=== PATIENT | female | born 1960 | race Caucasian/White ===

== ENCOUNTER → 2017-07-28 09:15 | Outpatient (CLI) | payer BC, SELFPAY | PROVIDERS: Visit Provider Obstetrics & Gynecology | DX: Z12.11 Encounter for screening for malignant neoplasm of colon (principal) | CPT/HCPCS: 82274 ==

== ENCOUNTER → 2018-04-21 10:28 | Outpatient (CLI) | payer BC, SELFPAY ==
[2017-07-27 08:13] VITALS: BMI 27.8
[2018-04-21 13:07] LABS: Cholesterol 261 mg/dL (200); Creatinine, Serum 0.56 mg/dL (0.55-1.02); EST Glomerular Filtration Rate 118 mL/min (>60); Est Glom Filt Rate - Afr Amer 143 mL/min (>60); High Density Lipoprotein 47 mg/dL; Triglycerides 181 mg/dL; Very Low Density Lipoprotein 36 mg/dL (5-40)
--- OUTSIDE RECORDS SUMMARY | 2018-06-25 19:13 | XMS RPT_ITS ---
:1960 Author Organization OHIP Care Team Providers Name Role Phone SALIMA HUNT Referring Unavailable Salima Hunt Attending Unavailable Salima Hunt Primary Care Unavailable Marycruz Bhardwaj Attending Unavailable Marycruz Bhardwaj Attending Unavailable Salima Hunt Referring Unavailable Salima Hunt Primary Care Unavailable PROBLEMS PROBLEMS DATE TYPE CONDITION / CODE ATTENDING STATUS SOURCE 04/21/2018 Unknown Z00.00 - Encounter Salima Hunt Active [place] for general adult [facility] without abnormal Repository findings / Z00.00(ICD-10) 07/28/2017 Unknown Z12.11 - Encounter [place] Active [place] for screening for [facility] malignant neoplasm [facility] of colon / Repository Z12.11(ICD-10) 07/27/2017 Unknown Z01.411 - Encounter Susie Bhardwaj [place] for gynecological [facility] (general) (routine) Repository with abnormal findings / Z01.411(ICD-10) 07/27/2017 Unknown N95.1 - Menopausal [place] Active [place] and female [facility] / N95.1(ICD-10) Repository 07/25/2017 Active Unknown / NA Active [facility] UNK(Unknown) Main [place] Repository PROCEDURES PROCEDURES No Procedure Records FoundRESULTS RESULTS LIPID PROFILE Collected: 04/21/2018 Status: F Source: [place] 10:30 AM [facility] [place] REPOSITORY TYPE CODE TESTS RESULT OUT OF RANGE REFERENCE UNITS LAB L501.4900 200 mg/dL High CHOL 261 Result Comment: <200 mg/dL Desirable 200-240 mg/dL Borderline >240 mg/dL High Risk LAB L501.5000 mg/dL Normal TRIG 181 Result Comment: The drugs N-Acetylcysteine and Metamizole may falsely depress this assay. Serum Triglycerides Reference Interval Normal <150 mg/dL Borderline high 150 - 199 mg/dL High 200 - 499 mg/dL Very High > or = 500 mg/dL LAB L501.6400 mg/dL Normal HDL 47 Result Comment: The drugs N-Acetylcysteine and Metamizole may falsely depress this assay. Reference Range HDL <40 mg/dL Low HDL Cholesterol HDL >or= 60 mg/dL High HDL Cholesterol LAB L501.6500 0-130 mg/dL High LDL 178 LAB L501.6600 5-40 mg/dL Normal VLDL 36 Performed By: #### L500.4100 #### [facility] [address] [place], [place], [id number] SERUM CREATININE AND Collected: 04/21/2018 Status: F Source: [place] GFR 10:30 AM [facility] REPOSITORY TYPE CODE TESTS RESULT OUT OF RANGE REFERENCE UNITS LAB L501.1100 0.55-1.02 mg/dL Normal 0.56 CREAT,SERUM Result Comment: The validity of the calculated GFR AND GFRAA in patients over 70 years has not been determined. Clinical correlation is essential. LAB L501.1110 >60 mL/min Normal EST GFR 118 Result Comment: Non- GFR Calc LAB L501.1115 >60 mL/min Normal EST GFR - AA 143 Result Comment: GFR Calc Performed By: #### L501.1105 #### [facility] [address] [place], [place], [address] Observed: 07/28/2017 Status: F Source: [place] STOOL OCCULT BLOOD 9:16 AM [facility] IFOB REPOSITORY STOB iFOB Occult Blood Negative Performed By: #### M100.7900 #### [facility] [address] [place], [address] RN CARE MANAGER OFFICE VISIT Observed: 07/27/2017 Status: F Source: [place] REPORT 8:46 AM [facility] REPOSITORY [facility] [address] [place] [address] OFFICE VISIT Date of Service: 07/27/17 MR#: [id number] Acct: [id number] Name: NATHANIEL PARSONS Rep #: [id number] : 1960 Provider: Marycruz Bhardwaj MD Age/Sex: 57/F Location[place] [facility] Status: Signed Intake Vital Signs07/27/17 Height 5 ft 2 in 07/27/17 Weight: 152 lb 2 oz 07/27/17 Body Mass Index (BMI) 27.8 07/27/17 Blood Pressure 127/72 Intake Visit Reasons: est annual former ccf Chief Complaint: est annual Fitness Floor Attendant Required: No Is patient in pain?: No Allergies No Known Allergies Allergy (Unverified 07/27/17 08:15) Medications calcium carbonate 200 mg calcium (500 mg) chewable tablet 200 mg PO TID tab 07/27/17 [History Confirmed 07/27/17] glucosamine sulfate 500 mg tablet 500 mg PO BID 07/27/17 [History Confirmed 07/27/17] multivitamin,cc-swji-bhlxpkte tablet 1 tab PO QDAY 07/27/17 [History Confirmed 07/27/17] Is last menstrual period known: No Post menopausal: Yes Patient : No : No PFSH Surgical History History of dilation and curettage (Acute) History of tonsillectomy (Acute) Family History Mother Cancer cervical Breast cancer Sister Cancer lung Breast cancer Father Myocardial infarction Heart disease Social History Smoking Status: Never smoker alcohol intake: current details: social substance use type: does not use caffeine: Yes what type of physical activity do you participate in: yoga, walking frequency: 3-4 times per week seatbelt use: always do you feel safe at home: Yes additional social history: [employer] Patient works at [place] [employer] Pregancy History 4 Elective abortions Hx Para 3 Spontaneous abortions Past Pregnancies Del. DateName GA/Weeks Outcome Route Bth WeighInfant GeLabor LgtAnesthesiDel LocatProvider FOB t n h a n HPI est annual former ccf: Details: NATHANIEL PARSONS is a 57 year old who presents for annual exam. tony just got , other two dtrs in carpenter, working Last PAP: 2014 History of abnormal PAP: no abnormals Last mammogram: and normal History of abnormal mammogram: Colon cancer screening: ordered Other preventative health care screenings: per pcp salima hunt Female Reproductive History Questions: Sexually active: Yes, Dyspareunia: No, PCB: No Menopausal Symptoms: Yes night sweats, Yes sleep problems (staying asleep) ROS Const Constitutional: Reports as per HPI and night sweats; denies poor appetite, fatigue, increased appetite, weight gain or weight loss Cardio Card: Denies chest pain Resp Resp: Denies dyspnea or cough GI GI: Reports as per HPI; denies bloating, abdominal pain, constipation, vomiting or nausea : Reports as per HPI, urinary frequency and other; denies blood in urine, vaginal odor, vaginal itching, vaginal dryness, vaginal discharge, urinary urgency, urinary incontinence, pelvic pain, painful urination, difficulty urinating, prolapse symptoms or nipple discharge Skin Skin/Breast: Denies breast pain, breast skin changes, nipple discharge, breast lump or changing lesions Exam Const General: cooperative, healthy appearing, comfortable, no acute distress, well developed, well groomed [facility] Head: normal to inspection, normocephalic Ears: hearing grossly normal bilaterally, external ears normal Nose: external nose normal Face and sinus: normal facial exam Neck Neck: normal visual inspection, full ROM, no lymphadenopathy Thyroid: thyroid normal Chest Chest palpation AND inspection: normal inspection of the chest Breast inspection: normal inspection of the breasts, normal inspection of the axillae Breast palpation: normal palpation of the breasts, normal palpation of the axillae, no axillary lymphadenopathy Resp Effort AND Inspection: normal respiratory effort GI Inspection: normal to inspection, non-distended Palpation: no guarding, soft, no hepatosplenomegaly General: bladder normal to palpation External Female Exam: normal external appearance, normal appearance of the urethra, no lesions Urethra: normal appearance of the urethra, normal palpation Speculum Exam - Vagina: normal appearance of the vagina, normal vaginal discharge Speculum Exam - Cervix: normal appearance of the cervix, no cervical discharge, no lesions, nontender Bimanual Exam- Vagina AND Uterus: No cervical tenderness, normal bimanual exam, uterine size normal, bladder normal to palpation, uterine mobility normal, uterine consistency normal, uterus non-tender, no cervical motion tenderness Bimanual Exam- Adnexa, other: normal adnexae, no adnexal masses, adnexae non-tender Skin General: no rashes or lesions noted Neuro General: alert, moves all extremities, no focal motor deficits Extrem General: no pedal edema, normal to inspection Psych Appearance: grossly normal Mental Status: mental status grossly normal Affect: normal affect Speech and Movement: speech and movement normal Attitude: cooperative Assessment AND Plan Problems 1. Encounter for gynecological examination with abnormal finding Z01.411 2. Climacteric N95.1 Plan Cervical cancer screening: pap 2014 Breast cancer screening: mamm up to date other health maintenance examination reviewed and up to date. Encouraged maintenance of a healthy weight and active lifestyle and handout given. Calcium/vitamin D recommendations provided. Annual exam handout including recommendations for good health guidelines and basic screening information given. Problem list up to date, see problem list details for any additional plan information. Follow up in one year for annual health maintenance exam or sooner if needed. Coding Level of Care Code Off vis,est,prev 40-64yrs Diagnoses Encounter for gynecological examination with abnormal finding Z01.411 Gynecological examination findings: abnormal findings PRESENT Climacteric N95.1 07/27/17 0846 <Electronically signed by Marycruz Bhardwaj MD> Date Marycruz Bhardwaj MD Cosigner Signature: Date (if applicable) CC: CNCO Observed: 07/25/2017 Status: COMPLETED Source: [place] 4:44 PM [facility] REPOSITORY HNO ID: [id number] Author: Mammography Coordinator Service: (none) Author Type: Physician Type: Letter Filed: 07/26/2017 11:32 PM Note Text: July 25, 2017 PID: [id number] Nathaniel Parsons [address] [place] [address] Dear Ms. Parsons, We are pleased to inform you that the results of your recent breast imaging exam on 07/25/2017 are normal. Early detection of cancer is very important. We also understand recommendations regarding breast cancer screening are controversial. Please discuss with your primary care provider which strategy is best for you and whether a mammogram is right for you. Your imaging studies and report will be kept on file at [facility] as part of your permanent medical record and are available for your continuing care. Thank you for allowing us to help in meeting your health care needs. Sincerely, Dr. Wilder Interpreting Radiologist [facility] (Normal over 40) [facility] SCREENING Observed: 07/25/2017 Status: F Source: [place] 8:27 AM [facility] REPOSITORY * * *Final Report* * * DATE OF EXAM: Jul 25 2017 8:27AM [facility] 0581 - [facility] SCREENING / PROCEDURE REASON: SCREENING BRIJESH MAMM * * * * Physician Interpretation * * * * RESULT: #[id number] - [facility] SCREENING BILATERAL DIGITAL SCREENING MAMMOGRAM WITH CAD: 07/25/2017 HISTORY: Screening Brijesh Mamm /patient reports no breast symptoms /priors available for comparison. RESULT: TECHNIQUE: The study was acquired using full field digital technology and interpreted from soft copy. Current study was also evaluated with a Computer Aided Detection (CAD). Comparison is made to exams dated: 08/07/2015 mammogram, 02/06/2015 mammogram, 08/06/2014 mammogram - [facility], and 07/23/2014 mammogram - [facility]. There are scattered fibroglandular elements in both breasts. There is a biopsy clip in the left breast. No significant masses, calcifications, or other findings are seen in either breast. There has been no significant interval change. IMPRESSION: NEGATIVE There is no mammographic evidence of malignancy. A 1 year screening mammogram is recommended. Tegan Wilder M.D., lp/penrad:07/25/2017 16:44:43 Platform Operations Director: Piedad Baird RT(R)(M), [facility] letter sent: Normal over 40 Mammogram BI-RADS: 1 Negative Organ Pipe Maker Metal: [employer] Transcribe Date/Time: Jul 25 2017 8:01A Dictated by: TEGAN WILDER MD This examination was interpreted and the report reviewed and electronically signed by: TEGAN WILDER MD on Jul 25 2017 4:44PM EST [id number] Observed: 07/25/2017 Status: COMPLETED Source: [place] 8:01 AM [facility] REPOSITORY HNO ID: [id number] Author: Loree Vazquez Service: (none) Author Type: (none) Type: Progress Notes Filed: 07/25/2017 8:32 AM Note Text: Radiology Service Progress Note PATIENT NAME: Nathaniel Parsons DATE OF SERVICE: July 25, 2017 TIME: 8:01 AM PATIENT IDENTITY VERIFICATION COMPLETED USING TWO (2) METHODS: Patient confirmed name verbally and Date of . PATIENT GENDER DATA: Female. status: : No status: NO. PATIENT RELEVANT IMPLANT DATA REVIEWED: Not Applicable RADIOLOGY DEPARTMENT: [facility] brijesh scr mammogram PERIPHERAL IV DATA: Not applicable SIGNED BY: Loree Vazquez July 25, 2017 8:01 AM ALLERGIES ALLERGIES DATE TYPE / CODE NAME / CODE REACTION SEVERITY SOURCE 07/27/2017 Drug No Known Unknown [facility] Allergy/416 Allergies/S84639 Hospital 738071(SNOM 0388(RXNORM) Repository ED CT) Drug NO KNOWN [facility] Class/92095 ALLERGIES [facility] 1003(SNOMED Repository CT) ENCOUNTERS ENCOUNTERS ADMIT/DISCHARGE ACCOUNT ADMITTING ENCOUNTER LOCATION SOURCE NUMBER CLASS 04/21/2018 [id number] Ambulatory [facility] ing:MFPLAB Repository 07/28/2017 [id number] Ambulatory [facility] ing:LABSPEC Repository 07/27/2017/07/28/19 [id number] Ambulatory BMSBuilding:B [place] [address] [facility] Repository 07/25/2017/07/26/19 [id number] Ambulatory [address] Repository PAYERS PAYERS ENCOUNTER GUARANTOR PAYER SUBSCRIBER SOURCE 04/21/2018 NATHANIEL [id number] Primary NORMAN SOLOMON Insurance:OSVALDOEMPmic OLSONB: wallace Lowry Number: [id number] [address]Ces: [id number] Repository Date:3212-55-34AX [address] () [id number] [place] [address]DE: 04/21/2018 Secondary NOT GIVENUNK [place] Insurance:SELF PAY [facility] Number: Effective Repository Date:2018-04-21 07/28/2017 NATHANIEL [id number] Primary Christopher D [place] JUANITO Insurance:ANTHEMPolic FowlerDOB: [place] Number: [id number] [address]Cbk: [id number] Repository Date:3353-24-02WD [address] () [id number] [place] [id number]: 07/28/2017 Secondary NOT GIVENUNK [place] Insurance:SELF PAY [facility] Number: Effective Repository Date:2017-07-28 07/27/2017 NATHANIEL [id number] Primary Christopher D [place] JUANITO Insurance:ANTHEMPolic FowlerDOB: [facility] [place] Number: [id number] [address]Gms: [id number] Repository Date:3848-46-70BL [address] () [id number], [place] [address]ZK: 07/27/2017 Secondary NOT GIVENUNK [place] Insurance:SELF PAY [facility] Number: Effective Repository Date:2017-07-27
== END ==
PROVIDERS: Family Provider Family Medicine; PCP Family Medicine; Visit Provider Family Medicine
DX: Z00.00 Encounter for general adult medical examination without abnormal findings (principal)
CPT/HCPCS: 36415; 80061; 82565

== ENCOUNTER → 2018-08-07 | Outpatient (CLI) | payer BC, SELFPAY ==
[2018-08-07 15:47] VITALS: BMI 27.8
[2018-08-10 16:22] LABS: HPV APTIMA, High Risk Negative (Negative)
== END | disposition home or self-care (01) ==
LOC: LABSPEC 16:45
PROVIDERS: Family Provider Family Medicine; PCP Family Medicine; Referring Provider Obstetrics & Gynecology; Visit Provider Obstetrics & Gynecology
DX: Z12.4 Encounter for screening for malignant neoplasm of cervix (principal)
CPT/HCPCS: 87624; 88175; G0145

== ENCOUNTER → 2018-08-07 | Outpatient (CLI) | payer BC, SELFPAY ==
--- NOTE | 2018-08-07 14:48 | BI_ITS ---
MAMMOGRAPHY - BILATERAL SCREENING 3-D TOMOSYNTHESIS REASON FOR EXAM: Female, 58 years old. Bilateral Screening 3-D tomosynthesis PERTINENT HISTORY: Mother with breast cancer at age 75. Patient status post benign left breast biopsy in 2009.. TECHNIQUE: 2-D mammograms and 3-D Tomosynthesis of the breast (s) were performed. CAD was performed. COMPARISON: July 25, 2017. FINDINGS: The breast composition is almost entirely fat. Scattered benign calcifications are seen. No dense spiculated masses or suspicious microcalcifications are identified. No architectural distortion is identified. There is no skin thickening or retraction. There is a stable, 5.7 mm maximum dimension, reniform, well-circumscribed nodule within the deep upper right breast seen only convincingly on the MLO views. This finding demonstrates a lucent/fatty hilum and is therefore most compatible with benign appearing intramammary lymph node. There has been no significant change since the prior study. BI/SCREEN MAMM (CAD) W/FREDDY BILAT IMPRESSION: No mammographic signs of malignancy. Routine yearly mammograms recommended. ASSESSMENT CATEGORY: BIRADS Category 2: Benign. A letter regarding these results will be sent to the patient by the facility within 30 days. FOLLOW UP RECOMMENDATION: Yearly follow up mammogram recommended. (A) Approximately 10% of breast cancers are not detected by mammography. A normal mammogram should not delay biopsy of a clinically suspicious abnormality. Electronically Signed: Giuliano Lowe MD at 16:19 EDT , Service support ,
== END | disposition home or self-care (01) ==
LOC: OPBI 14:47
PROVIDERS: Family Provider Family Medicine; PCP Family Medicine; Referring Provider Obstetrics & Gynecology; Visit Provider Obstetrics & Gynecology
DX: Z12.31 Encounter for screening mammogram for malignant neoplasm of breast (principal)
CPT/HCPCS: 77063; 77067

== ENCOUNTER 2018-11-26 14:08 | Emergency (ER) | payer BC, SELFPAY ==
[2018-08-07 15:47] VITALS: BMI 27.8
[2018-11-26 14:09] VITALS: BP 156/84; PULSE 69; RESP 18; TEMP 36.8; O2SAT 97; BMI 25.0
--- NOTE | 2018-11-26 14:22 | ED.VIS.UPPEX ---
History of Present Illness Chief Complaint: Laceration Informant: Patient Occurred: Today - JPTA Mechanism/Context: Injury Context: Sudden Onset Timing: Continuous Quality of Pain: - - sore Location: left forearm Current Severity: Mild Maximum Severity: Mild Worsened by: palpation Relieved by: leaving alone Associated Symptoms: Negative for: Parasthesia, Weakness, Loss of Funtion Narrative: Patient was gardening, trying to step on a shovel and lost her balance while doing so, falling back against an exposed bolt on a gardening cart, causing a laceration on her left forearm. [id number]. Tetanus Immunization: >10 years Past Medical History - Allergies and Home Meds Allergies/Adverse Reactions: Allergies No Known Allergies Allergy (Verified 11/26/18 14:09) Primary Care Physician: Rayshawn Coulter MD [Primary Care Provider] - Past Medical History: None Lives: Spouse/ Significant Other Smoking Status: Never smoker Review of Systems Musculoskeletal: Reports: Extremity Pain. Denies: Swelling Skin: Reports: Wounds Neurological: Denies: Weakness, Parasthesia, Numbness Physical Exam Vital Signs/Narrative: Vital Signs Temp Pulse Resp BP Pulse Ox 11/26/18 14:09 98.3 F 69 18 156/84 H 97 General: Well nourished, Well developed, - - Well-appearing, NAD Head: Normocephalic, Atraumatic Extremeties: Laceration just distal to the medial epicondyles of the left elbow. No bony tenderness, full range of motion throughout the entire extremity. Neurovascularly intact distally. Skin: Normal color, No rash, Trauma - 5 cm full-thickness clean-appearing laceration to the proximal medial right forearm, with exposed subcutaneous fat. Neurological: Alert, Oriented x3, Cranial nerves II-XII grossly intact, Normal Strength, Normal Sensation, Normal Gait Psychological: Normal affect, Normal Mood Diagnostic/Tx/Re-eval - Medical Decision Making Wound explored, no foreign body. It was repaired see procedure note. Tolerated well, no complications. Tetanus was updated. Suture removal in 10 to 14 days. Procedures - Lacerations right forearm Length: 5 cm Depth: Sub Q Shape: Linear - curvilinear, w/ L-shape at one end Prep: Sterile Conditions, Chlorhexadine Laceration repair: Irrigated, Lidocaine with epi, Local, Skin sutures Irrigated (ml): 50 Number of Sutures/[place]: 4 Suture Information: Ethilon, Horizontal, Mattress, 4-0 ED Disposition - Plan for ED Patient: Disposition: Home or Assisted Living Diagnosis: Laceration of right forearm without complication, Immunization, tetanus-diphtheria Instructions: LACERATION, Extrem (Suture, Staple or Tape), Vaccines: Td and Tdap (Adult) Referrals: Rayshawn Coulter MD [Primary Care Provider] - 10-14 Days suture removal
[2018-11-26] MEDS: Diphth,Pertuss(Acell),Tet Vac 0.5 ML Vial IM (15:21)
== END 2018-11-26 15:53 | disposition home or self-care (01) ==
PROVIDERS: Emergency Provider Emergency Medicine; Family Provider Family Medicine; PCP Family Medicine
DX: S51.812A Laceration without foreign body of left forearm, initial encounter (principal); Z23 Encounter for immunization; W26.8XXA Contact with other sharp object(s), not elsewhere classified, initial encounter; Y93.H2 Activity, gardening and landscaping; Y92.007 Garden or yard of unspecified non-institutional (private) residence as the place of occurrence of the external cause; Y99.8 Other external cause status
CPT/HCPCS: 12002; 90471; 90715; 99284

== ENCOUNTER → 2019-06-08 | Outpatient (CLI) | payer BC, SELFPAY ==
[2019-06-08 11:03] LABS: Absolute Lymphocyte Count 1.63 X10^3/uL (0.83-4.51); Absolute Neutrophil Count 3.6 X10^3/uL (2.0-7.7); Basophil# 0.04 X10^3/uL; Basophil% 0.7 % (0-1); Eosinophil# 0.11 X10^3/uL; Eosinophils% 1.9 % (0-5); Hematocrit 37.2 % (37-47); Hemoglobin 11.4 g/dL (12.0-15.0); Lymphocyte # 1.63 X10^3/ul (4.0); Mean Corp Hgb Conc 30.6 g/dL (32-36); Mean Corpuscular Hgb 26.6 pg (27.0-32.0); Mean Corpuscular Volume 86.9 fL (81-99); Mean Platelet Vol. 10.3 fl (6.2-12.0); Monocyte# 0.48 X10^3/uL; Monocyte% 8.2 % (0-10); NRBC Flagged by Analyzer 0 % (0-5); Neutrophil # 3.55 X10^3/uL (2.7-7.7); Neutrophil % 60.9 % (47-70); Platelet Count 321 K/mm3 (150-450); RBC Distribution Width CV 14.5 % (11.6-14.6); RBC Distribution Width SD 46.1 fl (35.1-43.9); Red Blood Count 4.28 M/mm3 (4.2-5.4); White Blood Count 5.8 K/mm3 (4.4-11.0)
[2019-06-08 11:22] LABS: Vitamin D,25 Hydroxy 26.7 ng/mL
[2019-06-08 11:35] LABS: ALB/GLOB Ratio 1.1 RATIO (0.9-2.4); AST(SGOT) 15 U/L (15-37); Alanine Aminotransfer ALT/SGPT 13 U/L (13-56); Albumin, Serum 3.6 g/dL (3.2-5.0); Alkaline Phosphatase 73 U/L (45-117); Anion Gap 5 (5-15); BUN 14 mg/dL (7-18); Calcium,Total 9.4 mg/dL (8.5-10.1); Chloride 109 mmol/L (98-107); Cholesterol 236 mg/dL (200); Creatinine, Serum 0.61 mg/dL (0.55-1.02); EST Glomerular Filtration Rate 107 mL/min (>60); Est Glom Filt Rate - Afr Amer 130 mL/min (>60); Globulin 3.4 g/dL (2.2-4.2); Glucose 75 mg/dL (74-106); High Density Lipoprotein 51 mg/dL; Potassium 3.8 mmol/L (3.5-5.1); Sodium Level 141 mmol/L (136-145); Thyroid Stim Hormone (TSH) 0.88 uIU/mL (0.358-3.74); Triglycerides 148 mg/dL; Very Low Density Lipoprotein 30 mg/dL (5-40)
--- NOTE | 2019-06-08 15:03 | RAD_ITS ---
STUDY: X-RAY - LEFT KNEE REASON FOR EXAM: Female, 59 years old. Pain and stiffness TECHNIQUE: 4 view(s) of the knee. COMPARISON: None. FINDINGS: Normal visualized distal femur. Normal visualized proximal tibia and fibula. Normal proximal tibiofibular articulation. There is mild degenerative arthrosis of the medial femorotibial compartment. Normal lateral femorotibial compartment. There is mild degenerative arthrosis of the patellofemoral articulation. The soft tissue structures are unremarkable. RAD/Knee 4 or More Views IMPRESSION: Degenerative arthrosis. Electronically Signed: Leodan Good MD at 9:55 EST , Service support ,
== END | disposition home or self-care (01) ==
PROVIDERS: PCP Family Medicine; Referring Provider Family Medicine; Visit Provider Family Medicine
DX: E78.00 Pure hypercholesterolemia, unspecified (principal); M85.80 Other specified disorders of bone density and structure, unspecified site
CPT/HCPCS: 36415; 73564; 80053; 80061; 82306; 84443; 85025

== ENCOUNTER 2019-06-28 16:00 | Outpatient (RCR) | payer BC, SELFPAY ==
--- NOTE | 2019-06-21 16:35 | HP.PTEVAL_ITS ---
Patient's Visit Information NATHANIEL PARSONS is a 59 year old F referred to Physical Therapy by Rayshawn Coulter MD with a diagnosis of L knee pain. Date of Evaluation: 06/21/19 Physical Therapist: Jose Miramontes, PT, ATC - Visit Plan Frequency: 2x /Week Duration: 1 Week Plan: Issue and instruct pt in a HEP of core strengthening to go along her her LE stretches she was issued - Subjective Subjective: Pt reports she has had pain in her L knee for 3 years. Pt reports the pain is not always the same. Pt reports the pain is located on the medial aspect of her L knee. Pt reports she has had xrays but never received the results. Pt notes no PMHx. Pt reports she used to walk for distances and exercise, both which she has had to quit secondary to pain. No tingling or numbness in L LE. No sleep difficulty secondary to pain. Pt has stairs at her home and notes she has to negotiate them one step at a time in the morning. Pt reports all WB'ing activity increases pain in the left knee. 0/10 pain at rest, 7/10 at the worst. - Pain L knee Pain Intensity (Out of 10): 0 Pain Intensity Range: 7 - Objective Neuro: B LE sensation is WNL to light touch. Girth at joint line: B knees 32 cm. ROM: B knees 0-143. Palpation: No swelling noted. Pt is most painful on the medial border of the patella and along the medial jointline of the L knee. Crepitus noted with AROM. MMT: knees 5/5 throughout. Special tests: Pos 90/90 test for HS tightness - Goals Goal 1:: I with HEP in 2-3 visits Goal Time Frame: 2 Weeks - Rehabilitation Potential Physical Therapy Diagnosis: L knee pain and inability to exercise secondary to patello-femoral syndrome Rehabilitation Potential: Good - Anticipated Interventions Patient/Client Instruction: Educate patient on: Condition, Plan of Care For the Purpose of:: To improve self management Therapeutic Exercise to Include: Strength training, Endurance training, Flexibilty training, Dynamic Lumbar Stabilization For the Purpose of:: To decrease pain, To improve muscle performance and motor function Thank you for the opportunity to evaluate your patient. For Medicare and Medicare HMO plans, please review the plan of care and approve it. It will need to be FAXED BACK to us at [phone] for Medicare purposes. For Medicare only, by signing this I certify the plan of care. Please let me know if there are questions or concerns regarding this plan of care. Physician Signature: Date:
--- NOTE | 2019-09-28 13:07 | HP.PT.NRP ---
NATHANIEL PARSONS was seen in my office for initial evaluation on 06/21/19. The following Plan of Care was established for this patient: Initial Frequency: 2x /Week Initial Duration: 1 Week Patient/Client Instruction: Educate patient on: Condition, Plan of Care For the Purpose of:: To improve self management Therapeutic Exercise to Include: Strength training, Endurance training, Flexibilty training, Dynamic Lumbar Stabilization For the Purpose of:: To decrease pain, To improve muscle performance and motor function This patient was last seen in our office . Pertinent comments regarding their Physical therapy will appear below: Pt was treated for 2 PT visits for knee pain through June 28, 2019. Pt has not returned through todays date and is discontinued at this time. At this point I will be discontinuing this patient from physical therapy. I would be happy to see this patient again in the future if found appropriate by the physician. Thank you! Jose Miramontes, PT, ATC
== END 2019-06-28 19:00 | disposition home or self-care (01) ==
LOC: PT 16:00
PROVIDERS: PCP Family Medicine; Referring Provider Family Medicine; Visit Provider Family Medicine
DX: M70.52 Other bursitis of knee, left knee (principal); M25.562 Pain in left knee
CPT/HCPCS: 97110; 97161

== ENCOUNTER → 2019-08-09 | Outpatient (CLI) | payer BC, SELFPAY ==
--- NOTE | 2019-08-09 08:07 | BI_ITS ---
MAMMOGRAPHY - BILATERAL SCREENING REASON FOR EXAM: Female, 59 years old. Routine annual screening examination. PERTINENT HISTORY: Mother with breast cancer. Remote left breast biopsy. TECHNIQUE: Digital bilateral breast freddy (3D mammographic acquisition) in the CC and MLO projections. 2-D mediolateral oblique (MLO) and craniocaudad (CC) views of both breasts were obtained. CAD: Full Field Digital Mammography with Computer Added Detection was performed. COMPARISON: Comparison is made with prior study dated August 07, 2018. FINDINGS: Breast Composition: The breasts are almost entirely fatty. There are no dominant masses or suspicious calcifications. Stable benign-appearing bilateral axillary lymph nodes. Stable 5.7 mm well-circumscribed nodule in the deep upper right lateral aspect of the breast. This most likely represents a small lymph node. No other significant abnormalities are identified. There has been no significant change since the prior study. BI/SCREEN MAMM (CAD) W/FREDDY BILAT IMPRESSION: Stable bilateral screening mammogram. Yearly follow-up mammogram recommended. (A) ASSESSMENT CATEGORY: BIRADS Category 2: Benign. A letter regarding these results will be sent to the patient by the facility within 30 days. Approximately 10% of breast cancers are not detected by mammography. A normal mammogram should not delay biopsy of a clinically suspicious abnormality. [id number] Electronically Signed: Darrian Martinez, at 8:59 EDT , Service support ,
--- NOTE | 2019-08-09 08:24 | BD_ITS ---
STUDY: DUAL ENERGY X-RAY ABSORPTIOMETRY / DXA REASON FOR EXAM: Female, 59 years old. 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 COMPARISON: None. FINDINGS: Lumbar Spine (L1-L4): g/cm2 (1.104) / T-score (-0.6) / Z-score (0.5) Findings are suggestive of normal bone density with a low fracture risk. Left Femur Total: g/cm2 (0.871) / T-score (-1.1) / Z-score (-0.2) Left Femoral Neck: g/cm2 (0.859) / T-score (-1.3) / Z-score (-0.1) Right Femur Total: g/cm2 (0.904) / T-score (-0.8) / Z-score (0.1) Right Femoral Neck: g/cm2 (0.809) / T-score (-1.6) / Z-score (-0.4) BD/Dexa Bone Density Study IMPRESSION: The patient is considered osteopenic as outlined below according to World Kang Organization (WHO) criteria with a moderate fracture risk. Reference Information: The T-score is the number of standard deviations above or below the standard which is normal for young adults at their peak bone mineral density. The World Health Organization (WHO) interprets the T-scores as follows: Above -1 Normal bone density Between -1 and -2.5 Osteopenia Equal to / or below -2.5 Osteoporosis As a practical clinical guideline, osteopenia may be graded as follows: Mild -1 through -1.5 Moderate -1.6 through -2.0 Severe -2.1 through -2.4 The Z-score is the number of standard deviations above or below age-matched controls. A Z-score of less than -1.5 would be considered abnormal. References: 1. NIH Osteoporosis and Related Bone Diseases http://www.osteo.org 2. International Society for Clinical Densitometry http://www.iscd.org 3. National Osteoporosis Foundation http://www.nof.org Electronically Signed: Darrian Martinez, at 9:53 EDT , Service support ,
== END | disposition home or self-care (01) ==
LOC: OPBI 08:07
PROVIDERS: PCP Family Medicine; Referring Provider Nurse Practitioner Women's Health; Visit Provider Family Medicine
DX: Z12.31 Encounter for screening mammogram for malignant neoplasm of breast (principal); M85.80 Other specified disorders of bone density and structure, unspecified site
CPT/HCPCS: 77063; 77067; 77080

== ENCOUNTER → 2020-06-09 09:26 | Outpatient (CLI) | payer BC, SELFPAY ==
[2020-06-09 12:06] LABS: Hematocrit 40.6 % (37-47); Hemoglobin 12.2 g/dL (12.0-15.0)
[2020-06-09 12:31] LABS: Vitamin D,25 Hydroxy 23.4 ng/mL
[2020-06-09 12:34] LABS: Cholesterol 252 mg/dL (200); Creatinine, Serum 0.62 mg/dL (0.55-1.02); EST Glomerular Filtration Rate 104 mL/min (>60); Est Glom Filt Rate - Afr Amer 126 mL/min (>60); High Density Lipoprotein 59 mg/dL; Triglycerides 132 mg/dL; Very Low Density Lipoprotein 26 mg/dL (5-40)
== END ==
PROVIDERS: PCP Family Medicine; Referring Provider Family Medicine; Visit Provider Family Medicine
DX: E55.9 Vitamin D deficiency, unspecified (principal); E78.00 Pure hypercholesterolemia, unspecified; M17.10 Unilateral primary osteoarthritis, unspecified knee
CPT/HCPCS: 36415; 80061; 82306; 82565; 85014; 85018

== ENCOUNTER → 2020-10-02 07:39 | Outpatient (CLI) | payer BC, SELFPAY ==
[2019-09-26 08:26] VITALS: BMI 25.0
--- NOTE | 2020-10-02 07:41 | BI_ITS ---
MAMMOGRAPHY - BILATERAL SCREENING REASON FOR EXAM: Female, 60 years old. Routine annual screening examination. PERTINENT HISTORY: Mother with breast cancer. Remote left breast biopsy. TECHNIQUE: Digital bilateral breast freddy (3D mammographic acquisition) in the CC and MLO projections. 2-D mediolateral oblique (MLO) and craniocaudad (CC) views of both breasts were obtained. CAD: Full Field Digital Mammography with Computer Added Detection was performed. COMPARISON: Comparison is made with prior study dated 08/09/2019 and 08/07/2018. FINDINGS: Breast Composition: The breasts are almost entirely fatty. There are no dominant masses or suspicious calcifications. A tissue clip marker is once again seen in the central retroareolar region of the left breast. Stable small benign appearing bilateral axillary lymph nodes. No other significant abnormalities are identified. There has been no significant change since the prior study. BI/SCRN MAMM (CAD)W/FREDDY BILAT IMPRESSION: Stable bilateral screening mammogram. Yearly follow-up mammogram recommended. (A) ASSESSMENT CATEGORY: BIRADS Category 2: Benign. A letter regarding these results will be sent to the patient by the facility within 30 days. Approximately 10% of breast cancers are not detected by mammography. A normal mammogram should not delay biopsy of a clinically suspicious abnormality. [id number] Electronically Signed: Darrian Martinez MD at 9:00 EDT , Service support ,
[2020-10-02 10:02] LABS: NATERA MAILED SPECIMEN
== END ==
PROVIDERS: PCP Family Medicine; Referring Provider Obstetrics & Gynecology; Visit Provider Obstetrics & Gynecology
DX: Z12.31 Encounter for screening mammogram for malignant neoplasm of breast (principal)
CPT/HCPCS: 36415; 77063; 77067

== ENCOUNTER 2021-06-30 08:23 | Outpatient (CLI) | payer BC, SELFPAY ==
[2021-06-30 10:15] LABS: Vitamin D,25 Hydroxy 26.7 ng/mL
[2021-06-30 10:17] LABS: Cholesterol 259 mg/dL (200); High Density Lipoprotein 49 mg/dL; Triglycerides 214 mg/dL; Very Low Density Lipoprotein 43 mg/dL (5-40)
[2021-06-30 10:46] LABS: PTHIN 54.1 pg/mL (18.4-80.1)
== END 2021-06-30 23:59 | disposition home or self-care (01) ==
LOC: MTLAB 08:25
PROVIDERS: PCP Family Medicine; Referring Provider Family Medicine; Visit Provider Family Medicine
DX: Z00.00 Encounter for general adult medical examination without abnormal findings (principal); M85.80 Other specified disorders of bone density and structure, unspecified site
CPT/HCPCS: 36415; 80061; 82306; 83970

== ENCOUNTER 2021-07-23 17:00 | Outpatient (RCR) | payer BC, SELFPAY ==
--- NOTE | 2021-06-18 17:37 | HP.PTEVAL ---
Patient's Visit Information NATHANIEL PARSONS is a 61 year old F referred to Physical Therapy by Dr. Rayshawn Coulter MD with a diagnosis of Gluteal tendonitis B R>L. Date of Evaluation: 06/18/21 Physical Therapist: Rayshawn Puentes, DPT, OCS, CSCS - Visit Plan Frequency: 2x /Week Duration: 4-6 Weeks Plan: 2x/week x 4 weeks for... 1. STM and DTR to R>L gluteal and piriformis. 2. stretch gluts and ITB and pirformis B. 3. strengthen B hips abd and extensor and stabs. Core stabs progress to HEP. 4. US if approved to R piriformis area nonthermal - Subjective Both hips hurt R >L. R is constant. They have been hurting for a few months. Insidious onset. Pain is lateral and posterior. R is 0-5/10, comfortable at rest for the most part. L 0-3/10. Worse with walking. Sleep is not interrupted unless she rolls over on it. No other leg symptoms. No LBP. Employed at a [employer] sitting 30 hrs week, worse after sitting. Hobbies include gardening, enjoys walking but does not do that due to her pain. Has had cortisone in her knees before. No diagnostics. Doctor said glute is tender. Wants to walk in [place] in August without pain. - Pain R hip Pain Intensity (Out of 10): 0 Pain Intensity Range: 0, 5 - Objective Walks without antalgia 300 feet I today, trasnfers I without pain, steps are reciprocal without rail with some minor R hip pain ascending. LB AROM WFL and without pain. - SLR and slump. HS and quad flexibility are good, ITB tight B. tender to touch in B gluteal muscles and piriformis into Greater trochanter R>L. 32#L hip ext adn 29# R Strength in the hips, also weak in rotations B but not painful, weak in abd at 3+ B., minor discomfort on R more spo with toe pointed down. knee and ankle strength 4+/5, reflexes 2/3 B patella and achilles. Sensation LE WNL to gross light touch. - Balance/Special Test Scores Lower Extremity Functional Score: 49 - Goals Goal 1:: walk [place] in August without pain. Goal Time Frame: 4-6 Weeks Goal 2:: Patient not tender in hips and pain 0-1 /10 at all times, 90% better. Goal Time Frame: 4-6 Weeks Goal 3:: Sleep without pain when rolling at night Goal Time Frame: 2-4 Weeks Goal 4:: LEFS 60/80 score Goal Time Frame: 4-6 Weeks - Rehabilitation Potential Physical Therapy Diagnosis: gluteal pain B hips limiting function at home. Rehabilitation Potential: Fair - Anticipated Interventions Patient/Client Instruction: Educate patient on: Condition, Plan of Care For the Purpose of:: To decrease pain, To increase ROM, To improve muscle performance and motor function, To improve ability of physical actions for home/community/work/leisure Therapeutic Exercise to Include: Strength training, Flexibilty training For the Purpose of:: To decrease pain, To increase ROM, To improve muscle performance and motor function, To improve ability of physical actions for home/community/work/leisure Manual Therapy Techniques to Include: Passive ROM, Soft tissue mobilization For the Purpose of:: To decrease pain, To increase ROM Ultrasound (thermal/non thermal): Yes - R hip, nonthermal For the Purpose of:: To decrease pain, To decrease swelling/inflammation Thank you for the opportunity to evaluate your patient. For Medicare and Medicare HMO plans, please review the plan of care and approve it. It will need to be FAXED BACK to us at [phone] for Medicare purposes. For Medicare only, by signing this I certify the plan of care. Please let me know if there are questions or concerns regarding this plan of care. Physician Signature: Date:
--- NOTE | 2021-07-09 16:49 | HP.PTREVAL ---
Dr. Rayshawn Coulter MD, It has been my pleasure to treat NATHANIEL PARSONS over the last 7 visits for Gluteal tendonitis Bilat R>L. Please see the progress note below for an update on the physical therapy plan of care! Subjective: Getting better. Less intense and less often. [place]allister duration. Pain this week 4/10 getting up after sitting and if walk longer distances. Doing strengthening at home and is challenging at times. Sleep is good. Hobbies are normal except walking long distance is still limited if greater than a mile. Objective/Function: Walks without antalgia today, steps reciprocal. Only pain is getting out of chair for first few steps. Progressing nicely toward goals. still worried about [place] trip in August and wants to continue manual for a few more weeks to make sure she is good. Plan Plan: Pt to do strength and rolling at home and call if problems or wrosens. Will f.u in two weeks if worsening and up to 2-3x/week for 2-3 weeks for manual therapy R gluts and piriformis if pain worsens. Otherwise will d/c in two weeks if still improving. Balance/Gait/Functional tests - Balance/Special Test Scores Lower Extremity Functional Score: 64 Goals Goal 1:: walk [place] in August without pain. Goal Time Frame: 4-6 Weeks Goal Progress: getting there. Goal 2:: Patient not tender in hips and pain 0-1 /10 at all times, 90% better. Goal Time Frame: 4-6 Weeks Goal Progress: Progressing Goal 3:: Sleep without pain when rolling at night Goal Time Frame: 2-4 Weeks Goal Progress: Progressing Goal 4:: LEFS 60/80 score Goal Time Frame: 4-6 Weeks Goal Progress: Goal Met Anticipated Interventions Patient/Client Instruction: Educate patient on: Condition, Plan of Care For the Purpose of:: To decrease pain, To increase ROM, To improve muscle performance and motor function, To improve ability of physical actions for home/community/work/leisure Therapeutic Exercise to Include: Strength training, Flexibilty training For the Purpose of:: To decrease pain, To increase ROM, To improve muscle performance and motor function, To improve ability of physical actions for home/community/work/leisure Manual Therapy Techniques to Include: Passive ROM, Soft tissue mobilization For the Purpose of:: To decrease pain, To increase ROM Ultrasound (thermal/non thermal): Yes - R hip, nonthermal For the Purpose of:: To decrease pain, To decrease swelling/inflammation Please do not hesitate to contact me at [phone] by phone or if you have questions or concerns regarding this new plan of care! Sincerely, Rayshawn Puentes, DPT, OCS, CSCS
--- NOTE | 2021-07-23 17:22 | HP.PTDCSUM ---
It has been my pleasure to treat NATHANIEL PARSONS referred by Dr. Rayshawn Coulter MD, with the diagnosis of Gluteal tendonitis Bilat R>L for a total of 8 visit(s). Discharge Date: 07/23/21 Please see the following information for a summary of their discharge status. Subjective: Did pretty good. Still 85% better. R lateral hip still hurts if sits too long and gets up, it does not linger. Has some R knee pain. Doing alot more, started walking 20 minutes at a time. Doing exercises with blue band 3x10 R hip Pain Intensity (Out of 10): 0 % Improvement: 85 Objective/Function: Walking without pain or antalgia today, same with steps, sidesteps, marching and lunge walking...no pain. Overall doing well and confident that she can continue to improve with strethcing and sterngthening on her own. Goal 1:: walk [place] in August without pain. Goal Progress: Goal Met Goal 2:: Patient not tender in hips and pain 0-1 /10 at all times, 90% better. Goal Progress: 85% Goal 3:: Sleep without pain when rolling at night Goal Progress: Goal Met Goal 4:: LEFS 60/80 score Goal Progress: Goal Met Plan: d/c to HEP If there are questions or concerns regarding this patient's physical therapy, please feel free to call me at [phone]. Thank you for the referral of this patient. Sincerely, Rayshawn Puentes, DPT, OCS, CSCS Balance/Gait/Functional tests - Balance/Special Test Scores Lower Extremity Functional Score: 64
== END 2021-07-23 19:00 | disposition home or self-care (01) ==
LOC: PT 17:00
PROVIDERS: PCP Family Medicine; Referring Provider Family Medicine; Visit Provider Family Medicine
DX: M76.01 Gluteal tendinitis, right hip (principal); M76.02 Gluteal tendinitis, left hip
CPT/HCPCS: 97110; 97140; 97161; 97164; 97530

== ENCOUNTER → 2021-10-12 | Outpatient (CLI) | payer BC, SELFPAY ==
[2020-10-02 08:33] VITALS: BMI 25.0
--- NOTE | 2021-10-12 07:49 | BI_ITS ---
MAMMOGRAPHY - BILATERAL SCREENING REASON FOR EXAM: Female, 61 years old. Routine annual screening examination. PERTINENT HISTORY: Mother with breast cancer. TECHNIQUE: Digital bilateral breast freddy (3D mammographic acquisition) in the CC and MLO projections. 2-D mediolateral oblique (MLO) and craniocaudad (CC) views of both breasts were obtained. CAD: Full Field Digital Mammography with Computer Added Detection was performed. COMPARISON: Comparison is made with prior study dated 10/02/2020 and 08/09/2019. FINDINGS: Breast Composition: The breasts are almost entirely fatty. There are no dominant masses or suspicious calcifications. A tissue clip marker is once again seen in the central retroareolar region of the left breast Stable small benign-appearing bilateral axillary lymph nodes. No other significant abnormalities are identified. There has been no significant change since the prior study. BI/SCRN MAMM (CAD)W/FREDDY BILAT IMPRESSION: Stable bilateral screening mammogram. Yearly follow-up mammogram recommended. (A) ASSESSMENT CATEGORY: BIRADS Category 2: Benign. A letter regarding these results will be sent to the patient by the facility within 30 days. Approximately 10% of breast cancers are not detected by mammography. A normal mammogram should not delay biopsy of a clinically suspicious abnormality. [id number] Electronically Signed: Darrian Martinez MD at 8:47 EDT ,
== END | disposition home or self-care (01) ==
LOC: OPBI 07:48
PROVIDERS: PCP Family Medicine; Visit Provider Obstetrics & Gynecology
DX: Z12.31 Encounter for screening mammogram for malignant neoplasm of breast (principal); Z80.3 Family history of malignant neoplasm of breast
CPT/HCPCS: 77063; 77067

== ENCOUNTER 2021-11-14 23:03 | Emergency (ER) | payer BC, SELFPAY ==
[2021-11-14 23:04] VITALS: BP 182/88; PULSE 71; RESP 15; TEMP 36.6; O2SAT 98; BMI 27.0
--- NOTE | 2021-11-14 23:19 | EKG12_ITS ---
Test Reason : DYSRHYTHMIA Blood Pressure : / mmHG Vent. Rate : 061 BPM Atrial Rate : 061 BPM P-R Int : 190 ms QRS Dur : 094 ms QT Int : 436 ms P-R-T Axes : 036 -17 037 degrees QTc Int : 438 ms Normal sinus rhythm Normal ECG Confirmed by JUNIOR MCCOY, PHOEBE ([id number]), supervising film or videotape editor CHENCHO VASQUEZ ([id number]) on 11/16/2021 10:07:31 AM Referred By: FREDY Confirmed By:PHOEBE PACHECO MD
--- NOTE | 2021-11-14 23:20 | EDS_ITS ---
HPI History of Present Illness Chief Complaint: Dizziness Informant: patient Narrative Narrative: Mihai presents with concern for elevated blood pressure. 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 This is the first time she has had her blood pressure checked in quite some time. It was elevated. She has been getting readings in the 160s over 80. Occasionally will be lower. It is higher. This evening she was over at family's house. She just felt that when she moved or turned her head there was a little bit more motion than typical. She was wondering if this might be because she had forgotten her glasses. When she went home it does seem to be better with her glasses on. She is not having the symptoms now. But also throughout the day she has felt her heartbeat in her fingertips and her chest. Its not fast or slow. It is not painful. Is not irregular. Its just been felt. She is not sure of this is just due to being anxious over the blood pressure but wanted to have things checked out to be sure. She does have an appointment with her physician coming up this week regarding the blood pressure. She has never been on medicines for this. In fact, she is on no medications for any conditions at all. There is a family history of high blood pressure though. PFSH PFSH Home Medications multivitamin,[id number]-[id number] (Complete Multivitamin tablet) 1 tab PO QDAY 07/27/17 [History Last Taken Unknown] Allergy/AdvReac Type Severity Reaction Status Date / Time No Known Allergies Allergy Verified 11/14/21 23:04 Family History Mother Cancer cervical Breast cancer Sister Cancer lung Breast cancer Father Myocardial infarction Heart disease Surgical History History of dilation and curettage History of tonsillectomy Social History Smoking Status: Never smoker alcohol intake: current details: social substance use type: does not use caffeine: Yes what type of physical activity do you participate in: walking and yoga frequency: 3-4 times per week seatbelt use: always do you feel safe at home: Yes additional social history: [employer] Patient works at [employer] ROS ROS ED Constitutional Constitutional ED: Denies fever(s), subjective or sweats Eyes Eyes: Denies blurry vision, change in vision or diplopia ENT ENT ED: Denies rhinorrhea Cardiovascular Cardiovascular: Reports other Details: See history of present illness peer ; Denies chest pain Respiratory/Chest Respiratory/Chest: Denies cough or dyspnea Gastrointestinal Gastrointestinal: Denies nausea or vomiting Musculoskeletal Musculoskeletal: Denies myalgias or neck pain Integumentary Denies rash Neurologic Neurologic: Denies headache(s), paresthesias, weakness or other Psychiatric Psychiatric: Reports anxiety Endocrine Endocrinology: Denies polydipsia or polyuria Hematologic/Lymphatic Hematologic/Lymphatic: Denies easy bleeding or easy bruising Allergic/Immunologic Allergic/Immunologic ED: Denies urticaria EXAM Physical Exam Const Vital Signs: 11/14/21 23:04 11/14/21 23:38 11/14/21 23:38 Temperature 98 F Temperature Source Temporal Pulse Rate 71 Respiratory Rate 15 Blood Pressure 182/88 H 165/75 H 165/75 H Blood Pressure Mean 119 105 105 Pulse Ox 98 Oxygen Delivery Method Room Air Positive well nourished and well developed General Appearance ED: well developed and NAD HEENT Reports moist mucous membranes Eyes PERRL and EOMs intact bilaterally General Eye ED: Negative for scleral icterus Neck no lymphadenopathy and supple Chest Wall inspection of chest normal Resp normal respiratory effort and clear to auscultation bilaterally Auscultation: Negative for rales, rhonchi or wheezes Cardio regular rate and regular rhythm GI normal to inspection, nondistended, normoactive bowel sounds Palpation: soft Back/Spine no CVA tenderness Extremity normal to inspection General Extremety ED: Negative for edema or tenderness General Extremity: Negative for edema Neuro oriented x3, CN's II-XII intact bilaterally and no sensory deficits noted Neuro Narrative: Normal gait and coordination. Sensorium / Orientation: alert Sensory Exam: No sensory level loss detected Motor Exam: strength 5/5 throughout Psych mental status grossly normal Skin no rashes or lesions noted MDM MDM MDM Narrative Medical decision making narrative: Patient's blood work did show some mild anemia. This can be followed up as an outpatient and I do not think it is the cause of her symptoms. She also has some low potassium. This certainly could cause some symptoms for her. I think it is worth replacing here. We will increase potassium in the diet such as bananas etc. She has an appointment with her physician this and she can have a recheck at that time. Blood pressure is back down to about 160s over 75. I think this can be treated as an outpatient does not require acute lowering. She is comfortable with this plan. Lab Data Attestation: I reviewed the patient's lab results. Labs: Laboratory Results - last 24 hr 11/14/21 11/14/21 23:45 23:45 WBC 7.3 RBC 4.39 Hgb 10.8 L Hct 36.3 L MCV 82.7 MCH 24.6 L MCHC 29.8 L RDW Std Deviation 48.1 H RDW Coeff of Deyanira 15.9 H Plt Count 283 MPV 9.4 Immature Gran % (Auto) 0.300 Neut % (Auto) 56.4 Lymph % (Auto) 31.1 Rains % (Auto) 9.5 Eos % (Auto) 2.0 Baso % (Auto) 0.7 Absolute Neuts (auto) 4.1 Absolute Lymphs (auto) 2.28 Nucleated RBC % 0 Sodium 141 Potassium 3.2 L Chloride 108 H Carbon Dioxide 27.0 Anion Gap 6 BUN 15 Creatinine 0.63 Estim Creat Clear Calc 74.17 Est GFR (MDRD) Af Amer 123 Est GFR (MDRD) Non-Af 101 BUN/Creatinine Ratio 23.7 H Glucose 111 H Calcium 8.9 Troponin I High Sens 6 Discharge Plan Triage Chief Complaint: Dizziness ED Provider: Jimy Palma Dx/Rx/DC Orders Clinical Impression: Elevated blood pressure reading, Hypokalemia, Anemia Instructions: Hypertension Dc, ED Hypokalemia Prescriptions: No Action multivitamin,cn-qtct-[id number] tablet tablet 1 tab PO QDAY Primary Care Provider: Rayshawn Coulter Referrals: Rayshawn Coulter MD [Primary Care Provider] - [facility] appointment Disposition Disposition: Home, Self Care
[2021-11-14 23:38] VITALS: BP 165/75
[2021-11-15 00:07] LABS: Absolute Lymphocyte Count 2.28 X10^3/uL (0.83-4.51); Absolute Neutrophil Count 4.1 X10^3/uL (2.0-7.7); Basophil# 0.05 X10^3/uL; Basophil% 0.7 % (0-1); Eosinophil# 0.15 X10^3/uL; Hematocrit 36.3 % (37-47); Hemoglobin 10.8 g/dL (12.0-15.0); Lymphocyte # 2.28 X10^3/ul (0.83-4.51); Lymphocyte % 31.1 % (19-41); Mean Corp Hgb Conc 29.8 g/dL (32-36); Mean Corpuscular Hgb 24.6 pg (27.0-32.0); Mean Corpuscular Volume 82.7 fL (81-99); Mean Platelet Vol. 9.4 fl (6.2-12.0); Monocyte% 9.5 % (0-10); NRBC Flagged by Analyzer 0 % (0-5); Neutrophil # 4.13 X10^3/uL (2.7-7.7); Neutrophil % 56.4 % (47-70); Platelet Count 283 K/mm3 (150-450); RBC Distribution Width CV 15.9 % (11.6-14.6); RBC Distribution Width SD 48.1 fl (35.1-43.9); Red Blood Count 4.39 M/mm3 (4.2-5.4); White Blood Count 7.3 K/mm3 (4.4-11.0)
[2021-11-15 00:13] LABS: Anion Gap 6 (5-15); BUN 15 mg/dL (7-18); BUN/Creat Ratio 23.7 RATIO (10-20); Calcium,Total 8.9 mg/dL (8.5-10.1); Chloride 108 mmol/L (98-107); Creatinine, Serum 0.63 mg/dL (0.55-1.02); EST Glomerular Filtration Rate 101 mL/min (>60); Est Glom Filt Rate - Afr Amer 123 mL/min (>60); Estimated Creatinine Clearance 74.17 ml/min; Glucose 111 mg/dL (74-106); Potassium 3.2 mmol/L (3.5-5.1); Sodium Level 141 mmol/L (136-145); Troponin-I HS 6 pg/mL (3.0-54.0)
[2021-11-15] MEDS: Potassium Chloride Oral Tablet 20 MEQ 40 MEQ PO (01:29)
[2021-11-15 01:31] VITALS: BP 176/80
== END 2021-11-15 01:34 | disposition home or self-care (01) ==
PROVIDERS: Emergency Provider Emergency Medicine; PCP Family Medicine; Visit Provider Emergency Medicine
DX: R03.0 Elevated blood-pressure reading, without diagnosis of hypertension (principal); E87.6 Hypokalemia; D64.9 Anemia, unspecified
CPT/HCPCS: 80048; 84484; 85025; 93005; 99284; A4216

== ENCOUNTER → 2021-11-17 | Outpatient (CLI) | payer BC, SELFPAY ==
[2021-11-17 12:56] LABS: Vitamin D,25 Hydroxy 33.2 ng/mL
[2021-11-17 12:58] LABS: Anion Gap 4 (5-15); BUN 12 mg/dL (7-18); BUN/Creat Ratio 18.2 RATIO (10-20); Calcium,Total 9.2 mg/dL (8.5-10.1); Chloride 103 mmol/L (98-107); Creatinine, Serum 0.66 mg/dL (0.55-1.02); EST Glomerular Filtration Rate 97 mL/min (>60); Est Glom Filt Rate - Afr Amer 117 mL/min (>60); Ferritin 8 ng/mL (8-252); Glucose 88 mg/dL (74-106); Magnesium 2.2 mg/dL (1.6-2.6); Potassium 3.3 mmol/L (3.5-5.1); Sodium Level 139 mmol/L (136-145); Thyroid Stim Hormone (TSH) 0.57 uIU/mL (0.358-3.74)
== END | disposition home or self-care (01) ==
LOC: MFPLAB 09:44
PROVIDERS: PCP Family Medicine; Referring Provider Family Medicine; Visit Provider Family Medicine
DX: R03.0 Elevated blood-pressure reading, without diagnosis of hypertension (principal); M85.80 Other specified disorders of bone density and structure, unspecified site; D64.9 Anemia, unspecified
CPT/HCPCS: 36415; 80048; 82306; 82728; 83735; 84443

== ENCOUNTER → 2021-11-24 | Outpatient (CLI) | payer BC, SELFPAY ==
--- NOTE | 2021-11-24 07:13 | CT_ITS ---
STUDY: CT ABDOMEN AND PELVIS WITH CONTRAST REASON FOR EXAM: Female, 61 years old. suspect GI loss of iron and potassium due to inflammatory bowel d RADIATION DOSAGE (If Supplied By Facility): CTDIvol = ( 12.25 ) mGy, DLP = ( 683.63 ) mGycm TECHNIQUE: Transaxial images were obtained from the dome of the diaphragm to the symphysis pubis with oral contrast. Oral and amp; IV Readi-CAT and amp; 100mL Isovue-370 was administered. Sagittal and coronal images were reconstructed. Individualized dose optimization techniques were used for this CT. COMPARISON: None. FINDINGS: The visualized lung bases are unremarkable. The visualized portions of the heart are within normal limits. 1.2 cm cyst in the posterior lateral segment left lobe of liver adjacent to the falciform ligament. Normal gallbladder and extrahepatic biliary system. Normal spleen. Normal pancreas. Normal bilateral adrenal glands. Normal right kidney. Normal left kidney. Normal visualized stomach. Normal small intestine. There are multiple colonic diverticula consistent with diverticulosis. The appendix is visualized and appears normal. Normal abdominal aorta. Normal inferior vena cava. Normal retroperitoneum. Normal urinary bladder. Prominent left ovarian vein and parametrial veins which can be seen in pelvic congestion syndrome. Normal abdominal wall. Normal osseous structures. CT/Abdomen/Pelvis WITH Contrast IMPRESSION: No CT evidence of inflammatory bowel disease. Sigmoid diverticulosis without diverticulitis. Electronically Signed: Winston Ramirze MD at 9:02 EDT ,
== END | disposition home or self-care (01) ==
PROVIDERS: PCP Family Medicine; Referring Provider Family Medicine; Visit Provider Family Medicine
DX: D50.0 Iron deficiency anemia secondary to blood loss (chronic) (principal)
CPT/HCPCS: 74177; Q9967

== ENCOUNTER → 2022-04-16 | Outpatient (CLI) | payer BC, SELFPAY ==
[2022-04-16 10:13] LABS: Absolute Lymphocyte Count 1.71 X10^3/uL (0.83-4.51); Absolute Neutrophil Count 4.1 X10^3/uL (2.0-7.7); Basophil# 0.04 X10^3/uL; Basophil% 0.6 % (0-1); Eosinophils% 1.6 % (0-5); Hematocrit 40.9 % (37-47); Lymphocyte # 1.71 X10^3/ul (0.83-4.51); Lymphocyte % 26.6 % (19-41); Mean Corp Hgb Conc 31.8 g/dL (32-36); Mean Corpuscular Hgb 27.4 pg (27.0-32.0); Mean Corpuscular Volume 86.1 fL (81-99); Mean Platelet Vol. 9.8 fl (6.2-12.0); Monocyte# 0.51 X10^3/uL; Monocyte% 7.9 % (0-10); NRBC Flagged by Analyzer 0 % (0-5); Neutrophil # 4.05 X10^3/uL (2.7-7.7); Neutrophil % 63.1 % (47-70); Platelet Count 313 K/mm3 (150-450); RBC Distribution Width CV 14.8 % (11.6-14.6); RBC Distribution Width SD 46.8 fl (35.1-43.9); Red Blood Count 4.75 M/mm3 (4.2-5.4); White Blood Count 6.4 K/mm3 (4.4-11.0)
[2022-04-16 10:50] LABS: Anion Gap 8 (5-15); BUN 15 mg/dL (7-18); BUN/Creat Ratio 26.6 RATIO (10-20); Calcium,Total 9.4 mg/dL (8.5-10.1); Chloride 105 mmol/L (98-107); Creatinine, Serum 0.56 mg/dL (0.55-1.02); EST Glomerular Filtration Rate 116 mL/min (>60); Est Glom Filt Rate - Afr Amer 140 mL/min (>60); Ferritin 16 ng/mL (8-252); Glucose 84 mg/dL (74-106); Potassium 3.9 mmol/L (3.5-5.1); Sodium Level 141 mmol/L (136-145)
== END | disposition home or self-care (01) ==
LOC: MTLAB 07:12
PROVIDERS: PCP Family Medicine; Referring Provider Family Medicine; Visit Provider Family Medicine
DX: E87.6 Hypokalemia (principal); D50.0 Iron deficiency anemia secondary to blood loss (chronic)
CPT/HCPCS: 36415; 80048; 82728; 83735; 85025

== ENCOUNTER → 2022-10-14 | Outpatient (CLI) | payer BC, SELFPAY ==
--- NOTE | 2022-10-14 07:47 | BI_ITS ---
MAMMOGRAPHY - BILATERAL SCREENING REASON FOR EXAM: Female, 62 years old. Routine annual screening examination. PERTINENT HISTORY: Mother with breast cancer. TECHNIQUE: Digital bilateral breast freddy (3D mammographic acquisition) in the CC and MLO projections. 2-D mediolateral oblique (MLO) and craniocaudad (CC) views of both breasts were obtained. CAD: Full Field Digital Mammography with Computer Added Detection was performed. COMPARISON: Comparison is made with prior study dated October 12, 2021 and October 02, 2020. FINDINGS: Breast Composition: The breasts are almost entirely fatty. There are no dominant masses or suspicious calcifications. A tissue clip marker is seen in the central retroareolar region of the left breast. Stable small benign appearing bilateral axillary lymph nodes. No other significant abnormalities are identified. There has been no significant change since the prior study. BI/SCRN MAMM (CAD)W/FREDDY BILAT IMPRESSION: Stable bilateral screening mammogram. Yearly follow-up mammogram recommended. (A) ASSESSMENT CATEGORY: BIRADS Category 2: Benign. A letter regarding these results will be sent to the patient by the facility within 30 days. Approximately 10% of breast cancers are not detected by mammography. A normal mammogram should not delay biopsy of a clinically suspicious abnormality. [id number] Electronically Signed: Darrian Martinez MD at 9:11 EDT ,
[2022-10-17 17:06] LABS: HPV APTIMA, High Risk Negative (Negative)
== END | disposition home or self-care (01) ==
PROVIDERS: PCP Family Medicine; Referring Provider Obstetrics & Gynecology; Visit Provider Obstetrics & Gynecology
DX: Z12.31 Encounter for screening mammogram for malignant neoplasm of breast (principal); Z12.4 Encounter for screening for malignant neoplasm of cervix
CPT/HCPCS: 77063; 77067; 87624; 88175; G0145

== ENCOUNTER → 2023-11-04 | Outpatient (CLI) | payer OTHER, SELFPAY ==
[2023-11-04 10:44] LABS: ALB/GLOB Ratio 1.1 RATIO (0.9-2.4); AST(SGOT) 18 U/L (15-37); Alanine Aminotransfer ALT/SGPT 13 U/L (13-56); Albumin, Serum 3.6 g/dL (3.2-5.0); Alkaline Phosphatase 68 U/L (45-117); Anion Gap 5 (5-15); BUN 12 mg/dL (7-18); BUN/Creat Ratio 19.9 RATIO (10-20); Calcium,Total 9.1 mg/dL (8.5-10.1); Chloride 105 mmol/L (98-107); Cholesterol 226 mg/dL (200); EST Glomerular Filtration Rate 107 mL/min (>60); Est Glom Filt Rate - Afr Amer 129 mL/min (>60); Globulin 3.3 g/dL (2.2-4.2); Glucose 85 mg/dL (74-106); High Density Lipoprotein 43 mg/dL; Potassium 3.7 mmol/L (3.5-5.1); Protein, Total 6.9 g/dL (6.4-8.2); Sodium Level 138 mmol/L (136-145); Triglycerides 273 mg/dL; Very Low Density Lipoprotein 55 mg/dL (5-40)
[2023-11-04 11:16] LABS: Microalbumin,Random Urine 32.9 mg/L (NO RANGE EST.); Microalbumin:Creatinine Ratio 12.5 mg/g CRE (<30 mg/g CRE)
== END | disposition home or self-care (01) ==
PROVIDERS: PCP Family Medicine; Referring Provider Family Medicine; Visit Provider Family Medicine
DX: I10 Essential (primary) hypertension (principal); E78.5 Hyperlipidemia, unspecified
CPT/HCPCS: 36415; 80053; 80061; 82043; 82570

== ENCOUNTER → 2023-12-14 | Outpatient (CLI) | payer OTHER, SELFPAY ==
--- NOTE | 2023-12-14 08:12 | BI_ITS ---
MAMMOGRAPHY - BILATERAL SCREENING REASON FOR EXAM: Female, 63 years old. Routine annual screening examination. PERTINENT HISTORY: Mother with breast cancer. TECHNIQUE: Digital bilateral breast freddy (3D mammographic acquisition) in the CC and MLO projections. 2-D mediolateral oblique (MLO) and craniocaudad (CC) views of both breasts were obtained. CAD: Full Field Digital Mammography with Computer Added Detection was performed. COMPARISON: Comparison is made with prior study dated October 14, 2022 and October 12, 2021. FINDINGS: Breast Composition: The breasts are almost entirely fatty. There are no dominant masses or suspicious calcifications. Stable small benign appearing bilateral axillary lymph nodes. A tissue clip marker is seen in the central retroareolar region of the left breast. No other significant abnormalities are identified. There has been no significant change since the prior study. BI/SCRN MAMM (CAD)W/FREDDY BILAT IMPRESSION: Stable bilateral screening mammogram. Yearly follow-up mammogram recommended. (A) ASSESSMENT CATEGORY: BIRADS Category 2: Benign. A letter regarding these results will be sent to the patient by the facility within 30 days. Approximately 10% of breast cancers are not detected by mammography. A normal mammogram should not delay biopsy of a clinically suspicious abnormality. [id number] Electronically Signed: Darrian Martinez MD at 9:11 EDT ,
== END | disposition home or self-care (01) ==
PROVIDERS: PCP Family Medicine; Referring Provider Obstetrics & Gynecology; Visit Provider Obstetrics & Gynecology
DX: Z12.31 Encounter for screening mammogram for malignant neoplasm of breast (principal); Z80.3 Family history of malignant neoplasm of breast
CPT/HCPCS: 77063; 77067

== ENCOUNTER → 2024-03-20 | Outpatient (CLI) | payer OTHER, SELFPAY ==
[2024-03-20 10:26] LABS: Anion Gap 4 (5-15); BUN 12 mg/dL (7-18); BUN/Creat Ratio 20.6 RATIO (10-20); Calcium,Total 9.9 mg/dL (8.5-10.1); Chloride 104 mmol/L (98-107); Creatinine, Serum 0.58 mg/dL (0.55-1.02); EST Glomerular Filtration Rate 111 mL/min (>60); Est Glom Filt Rate - Afr Amer 134 mL/min (>60); Glucose 83 mg/dL (74-106); Potassium 3.1 mmol/L (3.5-5.1); Sodium Level 138 mmol/L (136-145)
== END | disposition home or self-care (01) ==
LOC: MFPLAB 08:31
PROVIDERS: PCP Family Medicine; Referring Provider Family Medicine; Visit Provider Family Medicine
DX: I10 Essential (primary) hypertension (principal)
CPT/HCPCS: 36415; 80048

== ENCOUNTER → 2024-05-03 | Outpatient (CLI) | payer OTHER, SELFPAY ==
[2024-05-03 10:54] LABS: Anion Gap 5 (5-15); BUN 13 mg/dL (7-18); BUN/Creat Ratio 20.9 RATIO (10-20); Calcium,Total 9.3 mg/dL (8.5-10.1); Chloride 107 mmol/L (98-107); Creatinine, Serum 0.62 mg/dL (0.55-1.02); EST Glomerular Filtration Rate 103 mL/min (>60); Est Glom Filt Rate - Afr Amer 124 mL/min (>60); Glucose 93 mg/dL (74-106); Magnesium 2.3 mg/dL (1.6-2.6); Potassium 3.8 mmol/L (3.5-5.1); Sodium Level 140 mmol/L (136-145)
== END | disposition home or self-care (01) ==
LOC: MFPLAB 08:02
PROVIDERS: PCP Family Medicine; Visit Provider Family Medicine
DX: E87.6 Hypokalemia (principal)
CPT/HCPCS: 36415; 80048; 83735

== ENCOUNTER → 2024-12-18 | Outpatient (CLI) | payer OTHER, SELFPAY ==
[2024-12-18 12:34] LABS: Creatinine, Urine (random) 136.00 mg/dL (28.00-217.00); Microalbumin,Random Urine 14.5 mg/L (<20 mg/L)
[2024-12-18 13:02] LABS: AST(SGOT) 21 U/L (<=31); Alanine Aminotransfer ALT/SGPT 9 U/L (<=34); Albumin, Serum 4.2 g/dL (3.4-4.8); Alkaline Phosphatase 72 U/L (35-104); Anion Gap 13 (5-15); BUN 11 mg/dL (4-19); BUN/Creat Ratio 17.5 RATIO (10-20); Calcium,Total 9.5 mg/dL (7.6-11.0); Carbon Dioxide 23.8 mmol/L (21.0-32.0); Chloride 103 mmol/L (98-108); Globulin 2.9 g/dL (2.2-4.2); Glucose 115 mg/dL (70-99); Potassium 3.7 mmol/L (3.3-5.1)
== END | disposition home or self-care (01) ==
LOC: MFPLAB 08:45
PROVIDERS: PCP Family Medicine; Visit Provider Family Medicine
DX: I10 Essential (primary) hypertension (principal)
CPT/HCPCS: 36415; 80053; 82043; 82570

== ENCOUNTER → 2025-01-07 | Outpatient (CLI) | payer MEDICARE, SELFPAY ==
--- NOTE | 2025-01-07 07:45 | BI_ITS ---
EXAM: SCRN MAMM (CAD)W/FREDDY BILAT DATE: 01/07/2025 CLINICAL HISTORY: F, Age 64 y/o , SCREEN FOR BREAST CANCER TECHNIQUE: Procedure Code: [id number] Modality: MG Procedure: SCRN MAMM (CAD)W/FREDDY BILAT COMPARISON: Prior exam(s) dated 12/14/2023, 10/14/2022, and 10/12/2021.. FINDINGS: TISSUE DENSITY: The breasts are almost entirely fatty. Bilateral Breast Mammographic Findings: No significant masses, calcifications or other abnormalities are identified. Benign round microcalcifications are seen in both breasts. Partially obscured stable isodense masses are seen in both breasts. A radiopaque clip is seen in the superior medial aspect of the left breast. The biopsy was benign. The post biopsy site is stable. BI/SCRN MAMM (CAD)W/FREDDY BILAT IMPRESSION: Benign screening mammogram. OVERALL FINAL ASSESSMENT BI-RADS 2: BENIGN RECOMMENDATION: Routine annual follow-up in 1 Year Additional Recommendation none A letter with findings and recommendations will be mailed to the patient. Reading Location: [id number]
== END | disposition home or self-care (01) ==
PROVIDERS: PCP Family Medicine; Referring Provider Nurse Practitioner Women's Health; Visit Provider Nurse Practitioner Women's Health
DX: Z12.31 Encounter for screening mammogram for malignant neoplasm of breast (principal)
CPT/HCPCS: 77063; 77067